=== PATIENT | male | born 1955 | race Caucasian/White ===

== ENCOUNTER 2016-08-03 16:20 | Emergency (ER) | payer OTHER ==
[2016-08-03 16:26] VITALS: BMI 28.7
--- NOTE | 2016-08-03 16:39 | PDOC ---
History of Present Illness <Jareth Campoverde - Last Filed: 08/03/16 18:46> - General History Source: Patient, Old Records Exam Limitations: No Limitations - History of Present Illness Initial Comments: 08/03/16 17:37 The patient is a 60 year old male, with a significant past medical history of hyperlipidemia and GERD, who presents to the emergency department with intermittent RUQ pain for the past 3 weeks but worsening since yesterday. The patient describes the pain as sharp and rates it a 7/10 in severity. The patient reports that the pain is exacerbated with movement and reports that it is somewhat alleviated when lying down. The patient reports that he has not taken any medications for pain. The patient denies fever, chills, nausea, vomiting, diarrhea, dysuria or melena/bpr. Allergies: None reported. Past Surgical History: None reported. Social History: Former smoker (quit approximately 10 years ago). Reports occasional alcohol consumption. Denies drug use. PCP: Dr. Eduardo Blackmon <Annie Carlos - Last Filed: 08/03/16 22:12> - General Chief Complaint: Pain, Acute Stated Complaint: PAIN Time Seen by Provider: 08/03/16 16:35 Past History - Past Medical History GI Disorders: Yes (GERD) - Psycho/Social/Smoking Cessation Hx Anxiety: No Suicidal Ideation: No Smoking Status: No Smoking History: Former smoker Have you smoked in the past 12 months: No Number of Cigarettes Smoked Daily: 0 If you are a former smoker, when did you quit?: 30 YRS Information on smoking cessation initiated: No Hx Alcohol Use: Yes (OCCASIONALLY) Drug/Substance Use Hx: No Substance Use Type: None <Jareth Campoverde - Last Filed: 08/03/16 18:46> <Annie Carlos - Last Filed: 08/03/16 22:12> - Past Medical History Allergies/Adverse Reactions: Allergies Allergy/AdvReac Type Severity Reaction Status Date / Time No Known Allergies Allergy Verified 08/03/16 16:26 Home Medications: Ambulatory Orders Sulfamethoxazole/Trimethoprim [Bactrim Ds -] 1 tab PO BID #14 tablet 06/22/15 Review of Systems - Review of Systems Able to Perform ROS?: Yes Comments:: 08/03/16 16:54 CONSTITUTIONAL: No fever, no chills, no fatigue EYES: No visual changes ENT: No ear pain, no sore throat CARDIOVASCULAR: No chest pain, no palpitations RESPIRATORY: No cough, no SOB GI: +Abdominal pain. No nausea, no vomiting, no constipation, no diarrhea GENITOURINARY: No dysuria, no frequency, no hematuria MUSKULOSKELETAL: No back pain, no joint pain, no myalgias SKIN: No rash NEURO: No headache <Annie Carlos - Last Filed: 08/03/16 22:12> *Physical Exam - Vital Signs Last Vital Signs Temp Pulse Resp BP Pulse Ox 98.1 F 62 18 135/86 69 L 08/03/16 16:23 08/03/16 16:23 08/03/16 16:23 08/03/16 16:23 08/03/16 16:23 <Jareth Campoverde - Last Filed: 08/03/16 18:46> - Vital Signs Last Vital Signs Temp Pulse Resp BP Pulse Ox 98.1 F 62 18 135/86 69 L 08/03/16 16:23 08/03/16 16:23 08/03/16 16:23 08/03/16 16:23 08/03/16 16:23 - Physical Exam Comments: 08/03/16 16:53 CONSTITUTIONAL: Well-appearing; well-nourished; in no apparent distress. HEAD: Normocephalic; atraumatic. EYES: PERRL; EOM intact. No scleral icterus. Conjunctiva are pink. ENMT: External appears normal; normal oropharynx. NECK: Supple; non-tender; no cervical lymphadenopathy. CARD: Normal S1, S2; no murmurs, rubs, or gallops. RESP: Normal chest excursion with respiration; breath sounds clear and equal bilaterally; no wheezes, rhonchi, or rales. ABD: Minimal RUQ tenderness to palpation. Negative Emlenton sign. No hepatosplenomegaly. Soft, non-distended; no palpable organomegaly, no palpable hernias. EXT: Normal ROM in all four extremities; non-tender to palpation; distal pulses intact. SKIN: Warm, dry, no rash. NEURO: No focal neurological deficiencies. Normal speech, normal gait. <Annie Carlos - Last Filed: 08/03/16 22:12> Heart Score/ECG Review #1 ECG reviewed & interpreted by me at: 17:22 (Vent Rate: 61 bpm. Normal sinus rhythm.) <Annie Carlos - Last Filed: 08/03/16 22:12> ED Treatment Course - LABORATORY CBC & Chemistry Diagram: 08/03/16 17:00 08/03/16 17:00 <Jareth Campoverde - Last Filed: 08/03/16 18:46> - LABORATORY CBC & Chemistry Diagram: 08/03/16 17:00 08/03/16 17:00 <Annie Carlos - Last Filed: 08/03/16 22:12> Medical Decision Making - Medical Decision Making 08/03/16 18:04 Patient is well-appearing 60-year-old male who presents with atraumatic right upper quadrant and right sided flank pain that has persisted over the past 2-3 weeks, Not associated with nausea/vomiting/diarrhea/dysuria/hematuria. It's exacerbated by movement and relieved by rest. Patient also complaining of intermittent leg pain for the past 2-3 weeks as well. In the ER, patient is awake and alert, without evidence of scleral icterus; serial abdominal exams reveal minimal right upper quadrant tenderness to deep palpation without positive Turcios's; there is no CVA tenderness; there is no tenderness at McBurney's point. Distal pulses are +2 bilaterally. I do not suspect claudication or peripheral vascular disease. EKG reveals no evidence of acute ischemia or underlying arrhythmia. Will obtain LFTs to evaluate for possible statin related hepatic injury; will also obtain CPK to evaluate for rhabdomyolysis associated with statin therapy. We'll administer Toradol; likely discharge. 08/03/16 18:46 Patient is resting comfortably, pain free. CBC is within normal limit. CMP reveals mildly decreased calcium and an AST of 52 with a normal AL bili bilirubin and alkaline phosphatase. CPK is also within normal limit. I do not suspect statin related hepatic injury nor do I suspect rhabdomyolysis at this time. Bedside ultrasound showed no evidence of cholelithiasis. Will discharge patient with PMD follow-up further evaluation and treatment. <Jareth Campoverde - Last Filed: 08/03/16 18:46> *DC/Admit/Observation/Transfer - Attestations Physician Attestion: 08/03/16 18:04 The documentation was prepared by the scribe under my direct supervision. I have reviewed the documentation which correctly represents the findings, medical decision-making and critical action taken by me. <Jareth Campoverde - Last Filed: 08/03/16 18:46> - Attestations Scribe Attestion: 08/03/16 16:42 Documentation prepared by Annie Carlos, acting as medical assistant per diem for Jareth Campoverde MD. <Annie Carlos - Last Filed: 08/03/16 22:12> Diagnosis at time of Disposition: Abdominal pain Qualifiers: Abdominal location: right upper quadrant Qualified Code(s): R10.11 - Right upper quadrant pain - Discharge Dispostion Disposition: HOME Condition at time of disposition: Stable - Referrals Referrals: Eduardo Blackmon MD [Primary Care Provider] - - Patient Instructions Printed Discharge Instructions: DI for Abdominal Pain-Adult
[2016-08-03] MEDS ORDERED: KETOROLAC TROMETHAMINE 30 MG/1 ML VIAL IVPUSH ONE (16:51)
[2016-08-03] MEDS ORDERED: KETOROLAC TROMETHAMINE 30 MG/1 ML VIAL ONE (16:52)
[2016-08-03 17:05] LABS: BASOPHIL 0.4 % (0-2.0); EOSINOPHIL 2.1 % (0-4.5); MCH 27.7 pg (25.7-33.7); MCHC 33.7 g/dl (32.0-35.9); MEAN CELL VOLUME 82.1 fl (80-96); MEAN PLT VOLUME 9.2 fl (7.5-11.1); NEUTROPHILS 53.7 % (42.8-82.8); PLATELET COUNT 225 K/MM3 (134-434); RDW 14.2 % (11.9-15.9); WHITE BLOOD COUNT 7.2 K/mm3 (4.0-10.0)
[2016-08-03 17:31] LABS: ALBUMIN 3.7 g/dl (3.4-5.0); ANION GAP 9 (8-16); BILIRUBIN,TOTAL 0.4 mg/dL (0.2-1.0); CO2 25 mmol/L (21-32); COCKROFT - GAULT 142.19; CREATININE 0.7 mg/dL (0.7-1.3); GLUCOSE,RANDOM 133 mg/dL (74-106)
[2016-08-03 17:32] LABS: ALK PHOS 84 U/L (45-117)
[2016-08-03 17:38] LABS: SGOT/AST 52 U/L (15-37); SGPT/ALT 60 U/L (12-78); TOT PROT 7.3 g/dl (6.4-8.2)
[2016-08-03 18:21] LABS: URINE APPEARANCE CLEAR; URINE BILIRUBIN NEGATIVE (NEGATIVE); URINE BLOOD NEGATIVE (NEGATIVE); URINE COLOR YELLOW; URINE GLUCOSE (UA) NEGATIVE (NEGATIVE); URINE KETONE NEGATIVE (NEGATIVE); URINE LEUK ESTERASE NEGATIVE (NEGATIVE); URINE NITRITE NEGATIVE (NEGATIVE); URINE PROTEIN NEGATIVE (NEGATIVE); URINE UROBILINOGEN NEGATIVE E.U./dl (0.2-1.0)
[2016-08-03 18:57] VITALS: BP 135/80; PULSE 82; TEMP 98.3
--- NOTE | 2016-08-04 09:59 | EKG ---
Test Reason : Blood Pressure : / mmHG Vent. Rate : 061 BPM Atrial Rate : 061 BPM P-R Int : 180 ms QRS Dur : 082 ms QT Int : 430 ms P-R-T Axes : 029 012 034 degrees QTc Int : 432 ms NORMAL SINUS RHYTHM NO PREVIOUS ECGS AVAILABLE Confirmed by RACHEL PATIÑO MD ([id number]) on 08/04/2016 9:59:30 AM Referred By: Confirmed By:RACHEL PATIÑO MD
== END 2016-08-03 18:57 | disposition home or self-care (01) ==
LOC: JER 16:20
PROC: 3E0333Z Introduction of Anti-inflammatory into Peripheral Vein, Percutaneous Approach (ICD-10-PCS; principal; 2016-08-03)
DX: R10.11 Right upper quadrant pain (principal); K21.9 Gastro-esophageal reflux disease without esophagitis; E78.5 Hyperlipidemia, unspecified
CPT/HCPCS: 36415; 80053; 81003; 82550; 82553; 85025; 93005; 93010; 96374; 99284-25